=== PATIENT | male | born 2000 | race Hispanic/Latino ===

== ENCOUNTER 2023-05-02 20:38 | Emergency (ER) | payer OTHER, SELFPAY ==
--- OUTSIDE RECORDS SUMMARY | 2023-05-02 20:41 | XMS REPORT | Continuity of Care Document ---
:2000 Author Organization [facility] t Address [address] [facility] [facility] [address] [place] [address] Care Team Providers Name Role Phone Florentin Attending Clinician Unavailable KIMBERLEY VÁZQUEZ Attending Clinician Unavailable SARAH DELATORRE Attending Clinician Unavailable Arleen Attending Clinician Unavailable DR KRISTA NEGRETE Attending Clinician Unavailable ALVINO CASTREJON Attending Clinician Unavailable BIB JASON Attending Clinician Unavailable EZEQUIEL OROPEZA Attending Clinician Unavailable Florentin Admitting Clinician Unavailable Arleen Admitting Clinician Unavailable DR KRISTA NEGRETE Admitting Clinician Unavailable Payers Payer Name Policy Type Policy Number Effective Date Expiration Date S nick [place] [id number] 2017 00:00:00 [place] Problems Condition Condition Condition Status Onset Resolution Last Treating Co mments Source Name Details Category Date Date Treatment Clinician Date Exposure Exposure Problem Active [place] to to 2-15 da sexually Sexually 00:00: Medica l transmissi Transmissi 00 Gr oup ble ble disorder Disorder Tinea Tinea Problem Active [facility] Otitis Otitis Problem Active [facility] Pharyngiti Pharyngiti Problem Active M [facility] Acute Acute Problem Active [facility] pharyngiti Pharyngiti da s [facility] Tonsilliti Tonsilliti Problem Active [facility] Acute Acute Problem Active [place] upper Upper da respirator Respirator Me dical y y Group infection Infection Sinusitis Sinusitis Problem Active [facility] Allergic Allergic Problem Active [facility] rhinitis [facility] Pneumonia Pneumonia Problem Active [facility] Influenza Influenza Problem Active [facility] Asthma Asthma Problem Active [facility] Fever Fever Problem Active [facility] Allergies, Adverse Reactions, Alerts This patient has no known allergies or adverse reactions. Social History Smoking Status Start Date Stop Date Source Light Tobacco Smoker Arlin [facility] ed[facility] Group Medications Ordered Filled Start Stop Current Ordering Indication Dosage Frequency Signature Comments Components Source Medication Medication Date Date Medication? Clinician (SIG) Name Name albuterol albuterol No albuterol [place] sulfate HFA sulfate HFA sulfate da 90 90 HFA 90 Medical mcg/actuati mcg/actuati mcg/actuat Group on aerosol on aerosol ion inhaler inhaler aerosol INHALE 2 INHALE 2 inhaler PUFFS BY PUFFS BY INHALE 2 MOUTH ONCE MOUTH ONCE PUFFS BY NEEDED NEEDED MOUTH ONCE FOR FOR NEEDED WHEEZING WHEEZING FOR WHEEZING amlodipine amlodipine No amlodipine [facility] 5 mg tablet 5 mg tablet 5 mg d a TAKE 1 TAKE 1 tablet Medical TABLET BY TABLET BY TAKE 1 Sol up MOUTH EVERY MOUTH EVERY TABLET BY DAY FOR DAY FOR MOUTH HYPERTENSIO HYPERTENSIO EVERY DAY N N FOR HYPERTENSI ON Depo-Medrol Depo-Medrol No 80mg Depo-Medro [place] 80 mg/mL 80 mg/mL l 80 mg/mL d a suspension suspension suspension Medical for for for Group injection injection injection Take 80 mg Take 80 mg Take 80 mg by by by injection injection injection route. route. route. dexamethaso dexamethaso No 10mg dexamethas [place] ne sodium ne sodium one sodium da phosphate phosphate phosphate Medical 10 mg/mL 10 mg/mL 10 mg/mL Sol up injection injection injection solution solution solution Take 10 mg Take 10 mg Take 10 mg by by by injection injection injection route. route. route. montelukast montelukast No montelukas [facility] 10 mg 10 mg t 10 mg da tablet TAKE tablet TAKE tablet Medical 1 TABLET BY 1 TABLET BY TAKE 1 Group MOUTH EVERY MOUTH EVERY TABLET BY EVENING EVENING MOUTH EVERY EVENING Immunizations Ordered Immunization Filled Immunization Date Status Commen ts Source Name Name Hep A, ped/adol, 2 Hep A, ped/adol, 2 2005-05-29 Completed [place] dose - ML dose - ML 00:00:00 [facility] Group DTaP, unspecified DTaP, unspecified 2004-11-22 Completed [place] formulation - ML formulation - ML 00:00:00 Me dical Group MMR - ML MMR - ML 2004-11-22 Completed [place] 00:00:00 [facility] IPV - ML IPV - ML 2004-11-22 Completed [facility] 00:00:00 [facility] Hep B, adolescent or Hep B, adolescent 2000 Completed [facility] pediatric - ML or pediatric - ML 00:00:00 Med ical Group Vital Signs Vital Name Observation Time Observation Value Comments Source BP Diastolic 2022-11-14 00:00:00 92 mm[Hg] [facility] Height 2022-11-14 00:00:00 75 [in_i] [facility] BMI (Body Mass 2022-11-14 00:00:00 22.7 kg/m2 [facility] Medical Index) Group BP Systolic 2022-11-14 00:00:00 138 mm[Hg] [facility] Body Weight 2022-11-14 00:00:00 2912 [oz_av] [facility] BP Diastolic 2020-05-28 00:00:00 83 mm[Hg] [facility] Height 2020-05-28 00:00:00 75 [in_i] [facility] BMI (Body Mass 2020-05-28 00:00:00 37.6 kg/m2 [facility] Medical Index) Group BP Systolic 2020-05-28 00:00:00 138 mm[Hg] [facility] Body Weight 2020-05-28 00:00:00 4816 [oz_av] [facility] BP Diastolic 2019-06-19 00:00:00 87 mm[Hg] [facility] Height 2019-06-19 00:00:00 75 [in_i] [facility] BMI (Body Mass 2019-06-19 00:00:00 34.5 kg/m2 [facility] ordering clinician Medical Index) Group BP Systolic 2019-06-19 00:00:00 150 mm[Hg] [facility] Body Weight 2019-06-19 00:00:00 4419 [oz_av] [facility] BP Diastolic 2019-05-16 00:00:00 83 mm[Hg] [facility] Height 2019-05-16 00:00:00 75 [in_i] [facility] BMI (Body Mass 2019-05-16 00:00:00 34.2 kg/m2 [facility] ordering clinician Medical Index) Group BP Systolic 2019-05-16 00:00:00 142 mm[Hg] [facility] Body Weight 2019-05-16 00:00:00 4373 [oz_av] [facility] Procedures This patient has no known procedures. Plan of Care Planned Activity Planned Date Details Comments Source Diagnostic Test 2022-11-14 RPR (rapid plasma [facility] 00:00:00 reagin), serum Group [code = RPR (rapid plasma reagin), serum] Diagnostic Test 2022-11-14 HIV (1+2) Ab [facility] Pending 00:00:00 screen, serum [code Group = HIV (1+2) Ab screen, serum] Diagnostic Test 2022-11-14 hsv (1+2) igg Ab, [facility]ending 00:00:00 serum [code = hsv Group (1+2) igg Ab, serum] Diagnostic Test 2022-11-14 hepatitis panel [facility] Pending 00:00:00 (A+B+C), acute, Group serum [code = hepatitis panel (A+B+C), acute, serum] Diagnostic Test 2022-11-14 CT + NG + TV, DNA, [facility] ordering clinician Medical Pending 00:00:00 urine/swab [code = Group CT + NG + TV, DNA, urine/swab] Instructions [facility] Encounters Start End Encounter Admission Attending Care Care Encounter Source Date/Time Date/Time Type Type Clinicians Facility Department ID 2022-08-18 Inpatient [facility] [id number] [facility] 16:30:39 [id number] [place] 2022-11-23 2022-11-23 Outpatient Evans_S MMG [facility] [id number] [place] 00:00:00 00:00:00 0223 Medical Group 2022-11-14 2022-11-14 Outpatient BELINDA VÁZQUEZ [facility] [id number] [place] 10:32:00 10:32:00 KIMBERLEY -[id number] da [facility] 2022-11-14 2022-11-14 Outpatient Wander_S MMG [facility] [id number] [place] 00:00:00 00:00:00 [id number] da Medical Group 2022-11-14 2022-11-14 Kimberley ESPINOZA [place] - [id number] [facility] 00:00:00 00:00:[address] [facility]-C: 600 Medical Medic [facility] [address], [place] [address] , Ph. 2020-12-22 2020-12-22 Emergency ER OWO, TOKS [facility] [id number] [place] 10:05:00 11:14:00 -[id number] [facility] 2020-12-20 2020-12-20 Emergency ER OWO, TOKS [facility] [id number] [place] 09:33:00 14:46:00 -[id number] [facility] 2020-08-18 2020-08-18 Outpatient Hawkins_M MMG [facility] [place] 02:27:00 02:27:00 [id number] [facility] 2020-05-30 2020-05-30 Outpatient Hawkins_M MMG MM [place] 01:52:00 01:52:00 0830 [facility] 2020-05-30 2020-05-30 Outpatient Hawkins_M MMG MMG [place] 01:52:00 01:52:00 0902 Medical Group 2020-05-28 2020-05-28 Outpatient Hawkins_M MMG MMG [place] 03:35:00 03:35:00 [id number] Medical Group 2020-05-28 2020-05-28 Rylee MM [place] - [id number] M at[facility] 00:00:00 00:00:00 Antony Discovery da [facility], Medical Medical RABIES INSPECTOR: [address], [place] [address] , Ph. 2019-06-19 2019-06-19 Julia [facility] [place] - [id number] M atagor 00:00:00 00:00:00 Discovery [place] RABIES INSPECTOR: [address] [address], [facility] [address] , Ph. 2019-05-16 2019-05-16 Rylee [facility] [place] - [id number] M at[facility] 00:00:00 00:00:00 Cassia Parker Medical Medical RABIES INSPECTOR: [address] [facility] [address], [place] [address] , Ph. 2018-07-14 2018-07-14 Outpatient E KRISTA NEGRETE [facility] [id number] [facility]:10[facility]00 [facility] 2018-01-25 Emergency ER CASH, [facility] [id number] [place] 02:58:00 04:15:00 ALVINO -[id number] [facility] 2016-02-16 2016-02-16 Outpatient UR BIB JASON [facility] [id number] [place] 08:08:00 08:08:00 [id number] [facility] 2013-06-13 2013-06-13 Emergency ER JASONMIRIAJAY, [facility] [id number] [place] 11:08:00 13:25:00 CLETEZ -[id number] [facility] Results Test Description Test Time Test Comments Results Result Comments Source RPR 2022-11-14 14:14:00 Test Item Value Reference Range Interpretation Comme nts RPR (test code = RPR) nonreactive [facility] 12:52:00 Test Item Value Reference Range Interpretation Comments HIV P24 Ag (test code = HIV P24 non-reactive nonreactive Ag) HIV-1/2 Ab (test code = HIV-1/2 non-reactive nonreactive Ab) [facility]
--- NOTE | 2023-05-02 23:10 | ER ---
Nurse's Notes [facility] Name: Syd Zapata Age: 22 yrs Sex: Male : 2000 Arrival Date: 05/02/2023 Time: 20:38 Bed 15 Private MD: Diagnosis: Cutaneous abscess of left upper limb Presentation: 05/02 21:01 Chief complaint: Patient states: have a boil on my left forearm X 2 weeks, just got a iw shrimp boat. Coronavirus screen: At this time, the client does not indicate any symptoms associated with coronavirus-19. Ebola Screen: Patient negative for fever greater than or equal to 101.5 degrees Fahrenheit, and additional compatible Ebola Virus Disease symptoms Patient denies exposure to infectious person. Patient denies travel to an Ebola-affected area in the 21 days before illness onset. Initial Sepsis Screen: Does the patient meet any 2 criteria? No. Patient's initial sepsis screen is negative. Does the patient have a suspected source of infection? No. Patient's initial sepsis screen is negative. Risk Assessment: Do you want to hurt yourself or someone else? Patient reports no desire to harm self or others. Onset of symptoms was April 19, 2023. 21:01 Method Of Arrival: Ambulatory iw 21:01 Acuity: ODILON 4 iw Historical: - Allergies: 21:02 No Known Allergies; iw - Home Meds: 21:02 None [Active]; iw - PMHx: 21:02 None; iw - PSHx: 21:02 None; iw - Immunization history:: Adult Immunizations. - Social history:: Smoking status: Reported history of juuling and/or vaping. Screenin:43 [facility] ED Fall Risk Assessment (Adult) Score/Fall Risk Level 0 - 2 = Low Risk. Abuse as6 screen: Denies threats or abuse. Denies injuries from another. Nutritional screening: No deficits noted. Tuberculosis screening: No symptoms or risk factors identified. Assessment: 23:43 General: Appears in no apparent distress. Behavior is calm, cooperative. Pain: as6 Complains of pain in left arm. Respiratory: Respiratory effort is even, unlabored, Respiratory pattern is regular, symmetrical. Derm: Abscess located on palmar aspect of left forearm is nickel sized. Vital Signs: 21:01 BP 134 / 88; Pulse 100; Resp 16; Temp 98; Pulse Ox 100% on R/A; Weight 83.91 kg; Height iw 6 ft. 4 in. ; Pain 0/10; 23:43 BP 126 / 77; Pulse 76; Resp 18 S; Pulse Ox 100% on R/A; as6 21:01 Body Mass Index 22.52 (83.91 kg, 193.04 cm) iw 21:01 Pain Scale: Adult ED Course: 20:39 Patient arrived in ED. jj6 20:46 Estrella Arboleda [facility]-C [facility] snw 20:46 Pravin Aguero MD is Attending Physician. snw 21:02 Triage completed. iw 21:02 Arm band placed on. iw 22:56 Forearm Left XRAY In Process Unspecified. EDMS 23:44 Bed in low position. Call light in reach. Provided Education on: discharge teaching. as6 23:44 No provider procedures requiring assistance completed. Patient did not have IV access as6 during this emergency room visit. Administered Medications: 23:42 Drug: Trimethoprim-Sulfamethoxazole PO (160 mg-800 mg (DS) 1 tablet Route: PO; as6 23:45 Follow up: Response: No adverse reaction as6 23:42 Drug: Hibiclens Topical Liquid 4 % 1 application Route: Topical; Site: affected area; as6 23:45 Follow up: Response: No adverse reaction as6 23:42 Drug: Mupirocin Topical Ointment 2 % 1 application Route: Topical; Site: affected area; as6 23:44 Follow up: Response: No adverse reaction as6 Medication: 23:43 VIS not applicable for this client. as6 Outcome: 23:09 Discharge ordered by . snw 23:44 Discharged to home ambulatory. as6 23:44 Condition: stable 23:44 Discharge instructions given to patient, Instructed on discharge instructions, follow up and referral plans. medication usage, Demonstrated understanding of instructions, follow-up care, medications, wound care, Prescriptions given X 2. 23:45 Patient left the ED. as6 Signatures: Dispatcher [employer] EDSD Estrella Arboleda FNP-C FNP-Yoselyn Woodward, RN RN iw Payal Bueno jj6 Uriel Marcial RN RN as6
--- NOTE | 2023-05-02 23:10 | EDPHYS ---
Physician Documentation [facility] Name: Syd Zapata Age: 22 yrs Sex: Male : 2000 Arrival Date: 05/02/2023 Time: 20:38 Bed 15 Private MD: ED Physician Pravin Aguero HPI: 05/02 22:42 This 22 yrs old Male presents to ER via Ambulatory with complaints of Abscess. snw 22:42 The patient presents with an abscess of the palmar aspect of left forearm. Description: snw The affected area is small, well demarcated, crusted, crust removed with minimal drainage. Onset: The symptoms/episode began/occurred acutely. Modifying factors:. It is unknown whether or not the patient has had similar symptoms in the past. The patient has not recently seen a physician. 22:44 tetanus up to date. snw Historical: - Allergies: 21:02 No Known Allergies; iw - Home Meds: 21:02 None [Active]; iw - PMHx: 21:02 None; iw - PSHx: 21:02 None; iw - Immunization history:: Adult Immunizations. - Social history:: Smoking status: Reported history of juuling and/or vaping. ROS: 22:42 Constitutional: Negative for fever, chills, and weight loss, Eyes: Negative for injury, snw pain, redness, and discharge, ENT: Negative for injury, pain, and discharge, Neck: Negative for injury, pain, and swelling, Cardiovascular: Negative for chest pain, palpitations, and edema, Respiratory: Negative for shortness of breath, cough, wheezing, and pleuritic chest pain, Abdomen/GI: Negative for abdominal pain, nausea, vomiting, diarrhea, and constipation, Back: Negative for injury and pain, : Negative for injury, bleeding, discharge, and swelling, MS/Extremity: Negative for injury and deformity, Neuro: Negative for headache, weakness, numbness, tingling, and seizure, Psych: Negative for depression, anxiety, suicide ideation, homicidal ideation, and hallucinations. 22:42 Skin: Positive for abscess, of the palmar aspect of left forearm. Exam: 22:41 Constitutional: This is a well developed, well nourished patient who is awake, alert, snw and in no acute distress. Head/Face: Normocephalic, atraumatic. Eyes: Pupils equal round and reactive to light, extra-ocular motions intact. Lids and lashes normal. Conjunctiva and sclera are non-icteric and not injected. Cornea within normal limits. Periorbital areas with no swelling, redness, or edema. ENT: Nares patent. No nasal discharge, no septal abnormalities noted. Tympanic membranes are normal and external auditory canals are clear. Oropharynx with no redness, swelling, or masses, exudates, or evidence of obstruction, uvula midline. Mucous membranes moist. Neck: Trachea midline, no thyromegaly or masses palpated, and no cervical lymphadenopathy. Supple, full range of motion without nuchal rigidity, or vertebral point tenderness. No Meningismus. Chest/axilla: Normal chest wall appearance and motion. Nontender with no deformity. No lesions are appreciated. Cardiovascular: Regular rate and rhythm with a normal S1 and S2. No gallops, murmurs, or rubs. Normal PMI, no JVD. No pulse deficits. Respiratory: Lungs have equal breath sounds bilaterally, clear to auscultation and percussion. No rales, rhonchi or wheezes noted. No increased work of breathing, no retractions or nasal flaring. Abdomen/GI: Soft, non-tender, with normal bowel sounds. No distension or tympany. No guarding or rebound. No evidence of tenderness throughout. Back: No spinal tenderness. No costovertebral tenderness. Full range of motion. MS/ Extremity: Pulses equal, no cyanosis. Neurovascular intact. Full, normal range of motion. Neuro: Awake and alert, GCS 15, oriented to person, place, time, and situation. Cranial nerves II-XII grossly intact. Motor strength 5/5 in all extremities. Sensory grossly intact. Cerebellar exam normal. Normal gait. Psych: Awake, alert, with orientation to person, place and time. Behavior, mood, and affect are within normal limits. 22:41 Skin: Appearance: normal except for affected area, lesion(s), cutaneous abscess to left posterior forearm, no drainage, + thickening. Pt has been squeezing it x 2 weeks, no noted cellulitis. Vital Signs: 21:01 BP 134 / 88; Pulse 100; Resp 16; Temp 98; Pulse Ox 100% on R/A; Weight 83.91 kg; Height iw 6 ft. 4 in. ; Pain 0/10; 23:43 BP 126 / 77; Pulse 76; Resp 18 S; Pulse Ox 100% on R/A; as6 21:01 Body Mass Index 22.52 (83.91 kg, 193.04 cm) iw 21:01 Pain Scale: Adult iw MDM: 22:19 Patient medically screened. snw 23:07 Differential diagnosis: abscess, cellulitis. Data reviewed: vital signs, nurses notes. snw I considered the following discharge prescriptions or medication management in the emergency department Medications were administered in the Emergency Department. See MAR. Counseling: I had a detailed discussion with the patient and/or guardian regarding: the historical points, exam findings, and any diagnostic results supporting the discharge/admit diagnosis, the need for outpatient follow up, for definitive care, to return to the emergency department if symptoms worsen or persist or if there are any questions or concerns that arise at home. Special discussion: I discussed in detail with the patient the higher chance of wound infection based on his presenting history. Based on the history and exam findings, there is no indication for further emergent testing or inpatient evaluation. I discussed with the patient/guardian the need to see the primary care provider for further evaluation of the symptoms. 05/02 22:27 Order name: Forearm Left XRAY snw 05/02 23:07 Order name: Wound dressing; Complete Time: 23:42 snw Administered Medications: 23:42 Drug: Trimethoprim-Sulfamethoxazole PO (160 mg-800 mg (DS) 1 tablet Route: PO; as6 23:45 Follow up: Response: No adverse reaction as6 23:42 Drug: Hibiclens Topical Liquid 4 % 1 application Route: Topical; Site: affected area; as6 23:45 Follow up: Response: No adverse reaction as6 23:42 Drug: Mupirocin Topical Ointment 2 % 1 application Route: Topical; Site: affected area; as6 23:44 Follow up: Response: No adverse reaction as6 Disposition: 05/03 02:12 Co-signature as Attending Physician, Pravin Aguero MD I reviewed the patient's care rt provided by the Advanced Practice Provider and agree with the diagnosis and treatment plan. Disposition Summary: 05/02/23 23:09 Discharge Ordered Location: Home snw Condition: Stable snw Diagnosis - Cutaneous abscess of left upper limb snw Followup: snw - With: Emergency Department - When: As needed - Reason: Worsening of condition Followup: snw - With: Private Physician - When: 2 - 3 days - Reason: Recheck today's complaints, Continuance of care, Re-evaluation by your physician Discharge Instructions: - Discharge Summary Sheet snw - Skin Abscess snw - Rehydration, Adult snw Forms: - Medication Reconciliation Form snw - Thank You Letter snw - Antibiotic Education snw - Prescription Opioid Use snw - Patient Portal Instructions snw Prescriptions: - Mobic 7.5 mg Oral Tablet - take 1 tablet by ORAL route once daily take with food; 20 tablet; Refills: 0, snw Product Selection Permitted - Bactrim DS 800-160 mg Oral Tablet - take 1 tablet by ORAL route every 12 hours for 10 days; 20 tablet; Refills: 0, snw Product Selection Permitted Signatures: Dispatcher [employer] EDMS Estrella Arboleda, ANGY-C PROPERTY FIELD INSPECTOR-Csnw Yoselyn Banegas RN RN iw Uriel Marcial RN RN as6 Pravin Aguero MD MD rt
[2023-05-02] MEDS ORDERED: SMZ./TMP. 800/160 MG TABLET ONE (23:46)
[2023-05-02] MEDS ORDERED: MUPIROCIN 2% OINT 22GM TUBE TOP ONE (23:46)
[2023-05-03] VITALS: TEMP 98; O2SAT 100
[2023-05-03 00:11] VITALS: BP 126/77
--- NOTE | 2023-05-03 10:10 | RAD REPORT ---
EXAM DESCRIPTION: RAD - Forearm Left - 05/02/2023 10:54 pm CLINICAL HISTORY: R/o fb;Swelling. COMPARISON: None. TECHNIQUE: Two views of the left forearm: AP and lateral radiographs. FINDINGS: No acute osseous abnormality is identified. Alignment is maintained. No radiopaque foreign object in the soft tissues. Mild soft tissue swelling along the ulnar aspect of the proximal forearm . IMPRESSION: No radiopaque foreign object identified. Electronically signed by: Sharon Orozco MD 05/02/2023 11:26 PM CDT Due to temporary technical issues with the PACS/Fluency reporting system, reports are being signed by the in house radiologist without review as a courtesy to ensure prompt reporting. The interpreting r adiologist is fully responsible for the content of the report.
== END 2023-05-02 23:45 | disposition home or self-care (01) ==
LOC: ER 20:38
DX: L02.414 Cutaneous abscess of left upper limb (principal)